=== PATIENT | female | born 1985 | race African-American/Black ===

== ENCOUNTER 2021-12-23 07:31 | Outpatient (CLI) | payer OTHER, SELFPAY ==
--- NOTE | 2021-12-29 15:40 | WPDHOMESLEEP ---
Sleep Study - Home Unattended Date of Study: 12/23/21 Ordering Provider: Marianne Whitlock DO Interpreting Provider: Marianne Whitlock DO Home Sleep Study Type: Apnea Link Air Height: 1.65 m Weight: 104.326 kg Body Mass Index: 38.2 Neck Circumference (inches): 16 Reason for Sleep Study The patient is a commercial front load operator and she was told that she had to get a sleep study based on her BMI. Sleep History The patient is a 36-year-old female anxiety and asthma that had a sleep test ordered for evaluation sleep apnea. Answers in Yes (Y) or No (N): 1. Snore? Yes 2. Do you wake up gasping or feeling as if you cannot breathe? NO 3. Has bed partner or other person told you that you stop breathing during sleep? N/A 4. Do you toss and turn? sometimes 5. Do you awaken with a headache? no 6. Do you wake up feeling refreshed? yes 7. Does the Restless feeling improve with walking? n/a 8. Have you ever had an automobile accident or near-miss related to sleepiness while driving? no 9. Does your sleepiness interfere with work or school? no 10. Any history of sleepwalking? no 11. Do you have vivid dreams shortly after falling asleep? no 12. Do you feel like you cannot move just after you wake up? no 13. Do you ever feel a sudden weakness of your limbs when laughing or feeling emotional? no 14. Do you grind your teeth at night? no 15. Do you have trouble going to sleep? sometimes 16. Do you have frequent arousals during the night? no 17. Do you awaken during the night and have difficulty returning to sleep? no RLS Questions: 1. Do you experience an urge to move your legs, usually accompanied by an uncomfortable feeling or unpleasant sensation? no 2. Do these symptoms begin or worsen when resting or inactive such as when sitting or lying down? no 3. Do these symptoms improve by moving your legs or walking? no 4. Are these symptoms present primarily in the evening? no Do these leg symptoms cause concern, distress, sleep disturbance or impairment in functioning? n/a How frequently to these leg symptoms occur: n/a Difficulty falling asleep (duration of symptoms): Very occasional Difficulty staying asleep (duration of symptoms): n/a Psychophysiological issues: Yes [x ] No [ ] Rumination Yes [ ] No [ x] Mind racing Yes [ ] No [x ] Clock watching Yes [ ] No [x ] Other stresses at bedtime Sleep hygiene issues including bedroom environment, evening activities, bedtime activities, in-bed activities: [place] sleepiness scale today: 04/19 Sleep habits: What time do you go to bed? Work Days: 7-8 pm; Non-work days: After midnight How long does it take to go to sleep? <15 min How many times do you wake up a night? 2x/night Do you go to bed after waking up? Yes What time do you wake up? Work Days: 2 am; Non-work days: 2 am but then goes back to bed 6-7 am How many hours of effective sleep a night? 7.5 hours How many naps do you take during day time? noon-3 pm Sleep log summary: N/A Actigraphy summary: N/A Medications for insomnia and side effects: Caffeine use: No Smoking: No Alcohol: Occasional alcohol use. Medications affecting Sleep: None HTN Yes [ ] No [ x] BP Elevated today Yes [ ] No [x ] BMI >25 Yes [ x] No [ ] PFTs: N/A Echocardiogram: N/A PMFSH Past Medical History Medical History Anxiety Asthma Surgical History Surgical History History of appendectomy History of cholecystectomy Family History Family History Father Hypertension Social History Social History Smoking status: Never smoker Alcohol intake: current Medications Home Medications Medication Instructions Recorded Confirmed Type escitalopram oxalate 5 mg tablet
[2021-12-29 15:44] VITALS: BMI 38.2
== END 2021-12-24 15:11 | disposition home or self-care (01) ==
LOC: ANHCSM 07:34
PROVIDERS: PCP Family Medicine; Visit Provider Family Medicine
DX: G47.33 Obstructive sleep apnea (adult) (pediatric) (principal)
CPT/HCPCS: 95806